=== PATIENT | male | born 2000 | race Caucasian/White ===

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

== ENCOUNTER 2020-03-21 12:05 | Emergency (ER) | payer OTHER ==
[~2020-03-21] VITALS: Ht 190.5 cm; Wt 155.6 kg
[2020-03-21 12:20] VITALS: Ht 190.5 cm; Wt 155.6 kg
[2020-03-21 13:16] VITALS: BP 93/72
== END 2020-03-21 13:16 | disposition home or self-care (01) ==
LOC: ED 12:05
DX: S00.83XA Contusion of other part of head, initial encounter (principal); W22.8XXA Striking against or struck by other objects, initial encounter; Y93.89 Activity, other specified; Y92.89 Other specified places as the place of occurrence of the external cause; Y99.8 Other external cause status